=== PATIENT | male | born 1955 | race Caucasian/White ===

== ENCOUNTER 2017-08-12 10:50 | Emergency (ER) | payer SELFPAY ==
[~2017-08-12] VITALS: Ht 170.2 cm; Wt 99.8 kg
[2017-08-12 11:06] VITALS: BP 149/95
[2017-08-12] MEDS ORDERED: ARTIFICIAL TEAR15 ML LEFT EYE (11:26)
[2017-08-12] MEDS ORDERED: TOBRAMYCIN5 ML OPHTHALM (11:26)
[2017-08-12 11:36] VITALS: BP 149/95
--- NOTE | 2017-08-18 00:28 | Emergency Room Report ---
History of Present Illness General Chief Complaint: Eye Problems Source: Patient Present Illness HPI Patient is a 61-year-old male who presented after having increased eye redness and discharge. Patient gradual onset of symptoms. He denied any visual changes. He had sick contacts at home with similar type illness. The patient for having some crusting to his eye. He denies severe pain. He had not been vomiting he reported having nonproductive cough Allergies: Coded Allergies: No Known Allergies (Unverified , 08/12/17) Patient History Past Medical History: see triage record Reviewed Nursing Documentation: PMH: Agreed, PSxH: Agreed Nursing Documentation-PMH Past Medical History: No History, Except For Hx Hypertension: Yes Hx Diabetes: Yes Review of Systems All Other Systems: negative except mentioned in HPI Physical Exam Vital Signs Date Time Temp Pulse Resp B/P (MAP) Pulse Ox O2 Delivery O2 Flow Rate FiO2 08/12/17 11:06 97.2 83 16 149/95 100 Room Air General Appearance: well appearing, no apparent distress, alert, GCS 15, non- toxic Head: normocephalic, atraumatic Eyes: bilateral eye other - eye redness , slight discharge ENT: hearing grossly normal, normal voice Neck: full range of motion, supple Respiratory: no respiratory distress, speaking full sentences Musculoskeletal: no calf tenderness Neurologic: normal gait Psychiatric: mood/affect normal Skin: no rash Medical Decision Making Diagnostic Impression: Primary Impression: Conjunctivitis ER Course Patient presented for eye redness. Differential diagnosis included but wasn't limited to glaucoma, iritis, corneal abrasion, bacterial conjunctivitis, viral conjunctivitis. Patient has a benign exam and does not appear to require any further imaging or laboratory testing at this time. The patient's symptoms and history consistent with a viral conjunctivitis. This may be somewhat secondary infected and patient been given prescription for topical antibiotic. The patient is advised to follow up with eye doctor in 1-2 days. Patient is advised to return if any worsening condition or if any changes in status that are concerning. This report is dictated with [employer] affirmative action officer software which may occasionally lead to discrepancies related to use of this software. Last Vital Signs Date Time Temp Pulse Resp B/P (MAP) Pulse Ox O2 Delivery O2 Flow Rate FiO2 08/12/17 11:37 97.2 83 16 149/95 100 Room Air Status: improved Disposition: HOME, SELF-CARE Condition: Stable Scripts Dextran 70/Hypromellose (ARTIFICIAL TEARS EYE DROPS*) 15 Ml Drops 1 DROP LEFT EYE NEEDED, #15 ML 0 Refills Prov: Justice Amanda 08/12/17 Tobramycin (TOBRAMYCIN) 5 Ml Drops 2 DROP OPHTHALM THREE TIMES A DAY for 5 Days, #1 EA Instill in affected eye for 7 days Prov: Justice Amanda 08/12/17 Referrals: NOT CHOSEN [facility]/MD,REFERRING (PCP) Patient Instructions: Viral Conjunctivitis Additional Instructions: Follow up with piercing specialist in 2-3 days for recheck. Return if worsened vision, increased pain or other concerns Justice Amanda Aug 18, 2017 00:27
== END 2017-08-12 11:38 | disposition home or self-care (01) ==
LOC: EMR 11:20
DX: H10.9 Unspecified conjunctivitis (principal); I10 Essential (primary) hypertension; E11.9 Type 2 diabetes mellitus without complications
CPT/HCPCS: 99283